=== PATIENT | female | born 1960 ===

== ENCOUNTER → 2021-06-18 | Outpatient (CLI) | payer BC ==
[2021-06-20 15:11] LABS: HPV 16 Negative (Negative); HPV 18 Negative (Negative); HPV OTHER HR TYPES Negative (Negative)
== END | disposition home or self-care (01) ==
LOC: LAB 09:00 → LAB SHORT 09:00
PROVIDERS: Family Medicine
DX: Z01.419 Encounter for gynecological examination (general) (routine) without abnormal findings (principal)
CPT/HCPCS: 87624; G0145

== ENCOUNTER 2023-02-26 10:45 | Emergency (ER) | payer OTHER, BC ==
[~2023-02-26] VITALS: Ht 167.6 cm; Wt 79.4 kg
[2023-02-26] MEDS ORDERED: Ventolin/Prove6.7 GM INH (11:17)
[2023-02-26] MEDS ORDERED: OXYC5 PO (16:04)
[2023-02-26 16:15] VITALS: BP 130/77
== END 2023-02-26 16:34 | disposition home or self-care (01) ==
LOC: ER 10:45
DX: S82.62XA Displaced fracture of lateral malleolus of left fibula, initial encounter for closed fracture (principal); Z87.81 Personal history of (healed) traumatic fracture; Z88.0 Allergy status to penicillin; W01.0XXA Fall on same level from slipping, tripping and stumbling without subsequent striking against object, initial encounter; Y93.89 Activity, other specified
CPT/HCPCS: 29515; 73610; 96374-59; 96375-59; 99284-25; J1170; J1885; J2270

== ENCOUNTER 2025-01-23 14:50 | Emergency (ER) | payer BC ==
[~2025-01-23] VITALS: Ht 162.6 cm; Wt 72.6 kg
[~2025-01-23 14:50] MED LIST: OXYC5 PO; Ventolin/Prove6.7 GM INH
[2025-01-23 15:02] VITALS: BP 143/87
== END 2025-01-23 17:15 | disposition home or self-care (01) ==
LOC: ER 14:50
DX: M25.572 Pain in left ankle and joints of left foot (principal); Z88.0 Allergy status to penicillin
CPT/HCPCS: 93971; 99283-25